=== PATIENT | female | born 1965 | race Caucasian/White ===

== ENCOUNTER 2018-01-22 10:36 | Inpatient (IN) | payer MEDICAID ==
[~2018-01-22] VITALS: Ht 152.4 cm; Wt 69.2 kg
[2018-01-22 10:52] VITALS: Ht 152.4 cm; Wt 69.2 kg
[2018-01-22 11:28] LABS: PLATELET COUNT 296 x10^3mcL (130-400)
[2018-01-22 11:29] LABS: BASOPHIL % 0 % (0-2); RED CELL DISTRIBUTION WIDTH 17.4 % (11.5-14.5)
[2018-01-22 11:35] LABS: microscopic required? NO
[2018-01-22 11:39] LABS: CALCIUM 8.4 mg/dL (8.5-10.1); CHLORIDE SERUM 101 mmol/L (98-107); CREATININE SERUM 0.7 mg/dL (0.6-1.0); GFR1 > 60 mL/min; GLUCOSE SERUM 125 mg/dL (74-106); POTASSIUM SERUM 3.7 mmol/L (3.5-5.1); SODIUM SERUM 135 mmol/L (136-145)
[2018-01-22 11:44] LABS: ALKALINE PHOSPHATASE 103 U/L (46-116); ALT/SGPT 17 U/L (14-59); AST/SGOT 17 U/L (15-37); BILIRUBIN TOTAL 0.85 mg/dL (0.20-1.00)
[2018-01-22 11:45] LABS: TOTAL PROTEIN, SERUM 8.4 g/dL (6.4-8.2)
[2018-01-22 11:59] LABS: urine erythrocyte NEGATIVE (NEGATIVE)
[2018-01-22 13:41] LABS: CHOLESTEROL/HDL RATIO 3.6; MAGNESIUM 2.1 mg/dL (1.8-2.4); PHOSPHOROUS 3.1 mg/dL (2.5-4.9)
[2018-01-22 13:48] LABS: FREE T4 0.97 ng/dL (0.76-1.46); FREE THYROXINE INDEX 2.6 ug/dL (1.4-4.5); T4(THYROXINE) 9.2 ug/dL (4.7-13.3)
[2018-01-22 13:49] LABS: T3 TOTAL 1.03 ng/mL
[2018-01-22 14:04] VITALS: BP 124/51
[2018-01-22 16:50] LABS: IRON 11 ug/dL (50-170); TOTAL IRON BINDING CAPACITY 534 ug/dL (250-450)
[2018-01-22 20:48] VITALS: BP 132/62
[2018-01-23 05:50] VITALS: BP 100/70
[2018-01-23 06:23] LABS: CALCIUM 8.4 mg/dL (8.5-10.1); CARBON DIOXIDE 23.8 mmol/L (21-32); CHLORIDE SERUM 105 mmol/L (98-107); CREATININE SERUM 0.6 mg/dL (0.6-1.0); GFR1 > 60 mL/min; GLUCOSE SERUM 134 mg/dL (74-106); POTASSIUM SERUM 3.8 mmol/L (3.5-5.1); SODIUM SERUM 137 mmol/L (136-145)
[2018-01-23 07:18] LABS: PLATELET COUNT 291 x10^3mcL (130-400)
[2018-01-23 07:36] LABS: BASOPHIL % 0 % (0-2); RED CELL DISTRIBUTION WIDTH 17.2 % (11.5-14.5)
[2018-01-23 08:23] VITALS: BP 115/54
[2018-01-23 14:30] LABS: rbc morphology (normal/abnorm) ABNORMAL (NORMAL)
[2018-01-23 14:31] LABS: tear drop cell (dacryocyte) 1+
[2018-01-23 17:31] VITALS: BP 136/65
[2018-01-23 17:49] LABS: BASOPHIL % 0.1 % (0-2); PLATELET COUNT 310 x10^3mcL (130-400); RED CELL DISTRIBUTION WIDTH 21.9 % (11.5-14.5)
[2018-01-23 18:28] LABS: ovalocyte/elliptocyte 1+; rbc morphology (normal/abnorm) ABNORMAL (NORMAL); tear drop cell (dacryocyte) 1+
[2018-01-23 21:21] VITALS: BP 131/61
[2018-01-24 04:47] VITALS: BP 137/68
[2018-01-24 06:25] LABS: PLATELET COUNT 270 x10^3mcL (130-400)
[2018-01-24 06:31] LABS: CARBON DIOXIDE 23.1 mmol/L (21-32); CHLORIDE SERUM 104 mmol/L (98-107); CREATININE SERUM 0.6 mg/dL (0.6-1.0); GFR1 > 60 mL/min; GLUCOSE SERUM 125 mg/dL (74-106); POTASSIUM SERUM 3.3 mmol/L (3.5-5.1); SODIUM SERUM 137 mmol/L (136-145)
[2018-01-24 06:49] LABS: BASOPHIL % 0 % (0-2); RED CELL DISTRIBUTION WIDTH 21.7 % (11.5-14.5)
[2018-01-24 06:50] LABS: rbc morphology (normal/abnorm) ABNORMAL (NORMAL)
[2018-01-24 09:14] VITALS: BP 143/66
[2018-01-24 14:15] LABS: PLATELET COUNT 294 x10^3mcL (130-400)
[2018-01-24 14:22] LABS: BASOPHIL % 0 % (0-2); RED CELL DISTRIBUTION WIDTH 21.9 % (11.5-14.5)
[2018-01-24 15:12] LABS: ovalocyte/elliptocyte 1+; tear drop cell (dacryocyte) 1+
[2018-01-24 15:13] LABS: rbc morphology (normal/abnorm) ABNORMAL (NORMAL)
[2018-01-24 18:01] VITALS: BP 146/68
[2018-01-24 20:05] VITALS: BP 142/67
[2018-01-25 05:48] VITALS: BP 132/60
[2018-01-25 06:35] LABS: CALCIUM 8.2 mg/dL (8.5-10.1); CARBON DIOXIDE 22.2 mmol/L (21-32); CHLORIDE SERUM 108 mmol/L (98-107); CREATININE SERUM 0.6 mg/dL (0.6-1.0); GFR1 > 60 mL/min; GLUCOSE SERUM 111 mg/dL (74-106); POTASSIUM SERUM 3.3 mmol/L (3.5-5.1); SODIUM SERUM 144 mmol/L (136-145)
[2018-01-25 07:43] LABS: PLATELET COUNT 299 x10^3mcL (130-400)
[2018-01-25 07:53] LABS: BASOPHIL % 0 % (0-2); RED CELL DISTRIBUTION WIDTH 21.7 % (11.5-14.5)
[2018-01-25 09:45] VITALS: BP 135/65
[2018-01-25 16:38] VITALS: BP 124/60
[2018-01-25 20:47] VITALS: BP 146/70
[2018-01-26 05:12] VITALS: BP 114/62
[2018-01-26 05:47] LABS: BASOPHIL % 0.6 % (0-2); PLATELET COUNT 337 x10^3mcL (130-400)
[2018-01-26 05:50] LABS: RED CELL DISTRIBUTION WIDTH 20.3 % (11.5-14.5)
[2018-01-26 05:55] LABS: CALCIUM 7.9 mg/dL (8.5-10.1); CARBON DIOXIDE 25.8 mmol/L (21-32); CHLORIDE SERUM 104 mmol/L (98-107); CREATININE SERUM 0.5 mg/dL (0.6-1.0); GFR1 > 60 mL/min; GLUCOSE SERUM 111 mg/dL (74-106); MAGNESIUM 1.8 mg/dL (1.8-2.4); PHOSPHOROUS 2.9 mg/dL (2.5-4.9); POTASSIUM SERUM 3.6 mmol/L (3.5-5.1); SODIUM SERUM 137 mmol/L (136-145)
[2018-01-26 07:52] VITALS: BP 139/61
[2018-01-26 12:39] VITALS: BP 136/63
[2018-01-26 13:12] LABS: ovalocyte/elliptocyte 1+; rbc morphology (normal/abnorm) ABNORMAL (NORMAL); tear drop cell (dacryocyte) 1+
[2018-01-26 16:24] VITALS: BP 133/67
[2018-01-26 20:45] VITALS: BP 138/62
[2018-01-27 05:24] VITALS: BP 138/66
[2018-01-27 06:08] LABS: BASOPHIL % 0.3 % (0-2); PLATELET COUNT 359 x10^3mcL (130-400)
[2018-01-27 06:33] LABS: RED CELL DISTRIBUTION WIDTH 21.2 % (11.5-14.5)
[2018-01-27 06:39] LABS: CALCIUM 8.2 mg/dL (8.5-10.1); CHLORIDE SERUM 102 mmol/L (98-107); CREATININE SERUM 0.6 mg/dL (0.6-1.0); GFR1 > 60 mL/min; GLUCOSE SERUM 106 mg/dL (74-106); POTASSIUM SERUM 3.5 mmol/L (3.5-5.1); SODIUM SERUM 138 mmol/L (136-145)
[2018-01-27 07:45] VITALS: BP 127/59
[2018-01-27 12:59] VITALS: BP 115/67
[2018-01-27 16:34] VITALS: BP 104/41
[2018-01-27 20:53] VITALS: BP 114/48
[2018-01-28 06:02] VITALS: BP 127/50
[2018-01-28 06:06] LABS: CALCIUM 8.3 mg/dL (8.5-10.1); CARBON DIOXIDE 28.6 mmol/L (21-32); CHLORIDE SERUM 101 mmol/L (98-107); CREATININE SERUM 0.5 mg/dL (0.6-1.0); GFR1 > 60 mL/min; GLUCOSE SERUM 119 mg/dL (74-106); POTASSIUM SERUM 3.5 mmol/L (3.5-5.1); SODIUM SERUM 135 mmol/L (136-145)
[2018-01-28 06:45] LABS: BASOPHIL % 0.4 % (0-2); PLATELET COUNT 370 x10^3mcL (130-400)
[2018-01-28 06:52] LABS: RED CELL DISTRIBUTION WIDTH 21.1 % (11.5-14.5); rbc morphology (normal/abnorm) ABNORMAL (NORMAL)
[2018-01-28 09:12] VITALS: BP 121/59
[2018-01-28] MEDS ORDERED: CLARITIN10 MG PO (17:10)
[2018-01-28] MEDS ORDERED: METFORMIN HCL500 MG PO (17:10)
[2018-01-28] MEDS ORDERED: GOOD SENSE ASPI81 M3 PO (17:11)
[2018-01-28] MEDS ORDERED: METOPROLOL TART25 M1 PO (17:11)
[2018-01-28] MEDS ORDERED: PRILOSEC OTC20 M1 PO (17:11)
[2018-01-28] MEDS ORDERED: NOR10 PO (17:12)
[2018-01-28] MEDS ORDERED: ALENDRONATE SOD70 M2 PO (17:13)
[2018-01-28 17:14] VITALS: BP 122/69
[2018-01-28 20:00] VITALS: BP 114/60
[2018-01-29 05:27] VITALS: BP 110/52
[2018-01-29 06:58] LABS: CALCIUM 8.1 mg/dL (8.5-10.1); CARBON DIOXIDE 25.8 mmol/L (21-32); CHLORIDE SERUM 102 mmol/L (98-107); CREATININE SERUM 0.6 mg/dL (0.6-1.0); GFR1 > 60 mL/min; GLUCOSE SERUM 127 mg/dL (74-106); POTASSIUM SERUM 3.7 mmol/L (3.5-5.1); SODIUM SERUM 138 mmol/L (136-145)
[2018-01-29 07:23] LABS: BASOPHIL % 0.1 % (0-2); PLATELET COUNT 356 x10^3mcL (130-400); RED CELL DISTRIBUTION WIDTH 24.7 % (11.5-14.5)
[2018-01-29 08:45] VITALS: BP 104/52
[2018-01-29 16:36] VITALS: BP 115/68
[2018-01-29 20:26] VITALS: BP 147/68
[2018-01-30 05:57] VITALS: BP 99/52
[2018-01-30 06:25] LABS: CALCIUM 8.3 mg/dL (8.5-10.1); CARBON DIOXIDE 25.4 mmol/L (21-32); CHLORIDE SERUM 103 mmol/L (98-107); CREATININE SERUM 0.6 mg/dL (0.6-1.0); GFR1 > 60 mL/min; GLUCOSE SERUM 123 mg/dL (74-106); POTASSIUM SERUM 4.1 mmol/L (3.5-5.1); SODIUM SERUM 137 mmol/L (136-145)
[2018-01-30 06:51] LABS: BASOPHIL % 0.5 % (0-2)
[2018-01-30 07:09] LABS: PLATELET COUNT 422 x10^3mcL (130-400); RED CELL DISTRIBUTION WIDTH 25.7 % (11.5-14.5)
[2018-01-30 07:45] VITALS: BP 114/52
[2018-01-30 08:59] LABS: rbc morphology (normal/abnorm) ABNORMAL (NORMAL)
[2018-01-30 11:58] VITALS: BP 110/56
[2018-01-30] MEDS ORDERED: NORCO1 TA2 PO (12:03)
[2018-01-30] MEDS ORDERED: FER300 PO (12:08)
== END 2018-01-30 14:27 | disposition home or self-care (01) | DRG 240 ==
LOC: ED 10:36 → MU 12:56
PROVIDERS: Emergency Medicine; Family Medicine; Internal Medicine; Internal Medicine Gastroenterology
PROC: 30233N1 Transfusion of Nonautologous Red Blood Cells into Peripheral Vein, Percutaneous Approach (ICD-10-PCS; 2018-01-23)
PROC: 0DB68ZX Excision of Stomach, Via Natural or Artificial Opening Endoscopic, Diagnostic (ICD-10-PCS; principal; 2018-01-25 12:30)
PROC: 0DBN8ZX Excision of Sigmoid Colon, Via Natural or Artificial Opening Endoscopic, Diagnostic (ICD-10-PCS; 2018-01-25 12:30)
DX: C18.7 Malignant neoplasm of sigmoid colon (principal); K65.9 Peritonitis, unspecified; E83.51 Hypocalcemia; E87.1 Hypo-osmolality and hyponatremia; K92.2 Gastrointestinal hemorrhage, unspecified; E87.6 Hypokalemia; D50.9 Iron deficiency anemia, unspecified; E78.5 Hyperlipidemia, unspecified; K52.9 Noninfective gastroenteritis and colitis, unspecified; R73.03 Prediabetes; Z68.27 Body mass index [BMI] 27.0-27.9, adult; Z85.42 Personal history of malignant neoplasm of other parts of uterus
CPT/HCPCS: 43235; 45378; 83880; 84439; 87046; 87046-59; 88344; 88361; C9113; J1200; J1610; J1940; J1956; J2250; J2310; J2405; J2543; J2916; J3010; J3490; J7030; P9016; Q0163

== ENCOUNTER 2018-02-10 15:25 | Inpatient (IN) | payer MEDICAID ==
[~2018-02-10] VITALS: Ht 154.9 cm; Wt 73.1 kg
[~2018-02-10 15:25] MED LIST: ALENDRONATE SOD70 M2 PO; CLARITIN10 MG PO; FER300 PO; GOOD SENSE ASPI81 M3 PO; METFORMIN HCL500 MG PO; METOPROLOL TART25 M1 PO; NOR10 PO; NORCO1 TA2 PO; PRILOSEC OTC20 M1 PO
[2018-02-10 15:36] VITALS: Ht 154.9 cm; Wt 73.1 kg
[2018-02-10 16:46] LABS: UA SPECIFIC GRAVITY <=1.005 (1.005-1.035); microscopic required? YES; urine erythrocyte 1+ (NEGATIVE)
[2018-02-10 17:06] LABS: CALCIUM 8.1 mg/dL (8.5-10.1); CARBON DIOXIDE 22.6 mmol/L (21-32); CHLORIDE SERUM 95 mmol/L (98-107); CREATININE SERUM 0.8 mg/dL (0.6-1.0); GFR1 > 60 mL/min; GLUCOSE SERUM 154 mg/dL (74-106); POTASSIUM SERUM 3.3 mmol/L (3.5-5.1); SODIUM SERUM 128 mmol/L (136-145); T3 TOTAL 0.69 ng/mL
[2018-02-10 17:18] LABS: ALBUMIN 3.5 g/dL (3.4-5.0); ALKALINE PHOSPHATASE 111 U/L (46-116); ALT/SGPT 30 U/L (14-59); AST/SGOT 21 U/L (15-37); BILIRUBIN TOTAL 1.1 mg/dL (0.20-1.00)
[2018-02-10 17:21] LABS: TOTAL PROTEIN, SERUM 8.3 g/dL (6.4-8.2)
[2018-02-10 17:31] LABS: FREE T4 1.08 ng/dL (0.76-1.46); FREE THYROXINE INDEX 2.7 ug/dL (1.4-4.5); T4(THYROXINE) 8.4 ug/dL (4.7-13.3)
[2018-02-10 17:34] LABS: C REACTIVE PROTEIN 20.5 mg/dL (<=0.9); CK-MB < 0.5 ng/mL (0-3.6); CREATINE KINASE 25 U/L (26-192)
[2018-02-10 18:02] LABS: PLATELET COUNT 491 x10^3mcL (130-400); RED CELL DISTRIBUTION WIDTH 28.9 % (11.5-14.5)
[2018-02-10 18:10] LABS: BAND NEUTROPHIL 2 % (0-10); BASOPHIL 0 % (0-2); MONOCYTE 8 % (0-7); SEGMENTED NEUTROPHILS 85 % (37-75); rbc morphology (normal/abnorm) ABNORMAL (NORMAL)
[2018-02-10 18:11] LABS: PLATELET MORPHOLOGY PLATELETS INCREASED
[2018-02-10 18:14] LABS: ERYTHROCYTE SED RATE 40 mm/hr (0-30)
[2018-02-10] MEDS ORDERED: TYL500 PO (19:07)
[2018-02-10 19:54] VITALS: BP 106/47
[2018-02-10 20:08] LABS: CHOLESTEROL/HDL RATIO 3.9; MAGNESIUM 1.8 mg/dL (1.8-2.4); PHOSPHOROUS 3.2 mg/dL (2.5-4.9)
[2018-02-10 21:07] VITALS: BP 119/49
[2018-02-11 01:08] LABS: AMPHETAMINE QUAL UR NONE DETECTED (See below)
[2018-02-11 05:41] VITALS: BP 105/37
[2018-02-11 06:56] LABS: PLATELET COUNT 338 x10^3mcL (130-400)
[2018-02-11 07:05] LABS: CARBON DIOXIDE 22.1 mmol/L (21-32); CHLORIDE SERUM 104 mmol/L (98-107); CREATININE SERUM 0.8 mg/dL (0.6-1.0); GFR1 > 60 mL/min; GLUCOSE SERUM 117 mg/dL (74-106); POTASSIUM SERUM 3.9 mmol/L (3.5-5.1); SODIUM SERUM 136 mmol/L (136-145)
[2018-02-11 09:14] VITALS: BP 106/47
[2018-02-11 12:17] LABS: BAND NEUTROPHIL 16 % (0-10); BASOPHIL 0 % (0-2); MONOCYTE 1 % (0-7); SEGMENTED NEUTROPHILS 78 % (37-75)
[2018-02-11 12:18] LABS: PLATELET MORPHOLOGY PLATELETS NORMAL; rbc morphology (normal/abnorm) ABNORMAL (NORMAL)
[2018-02-11 12:53] VITALS: BP 110/56
[2018-02-11 12:55] LABS: BASOPHIL % 0.2 % (0-2); PLATELET COUNT 369 x10^3mcL (130-400)
[2018-02-11 12:59] LABS: RED CELL DISTRIBUTION WIDTH 26.7 % (11.5-14.5)
[2018-02-11 14:08] LABS: rbc morphology (normal/abnorm) ABNORMAL (NORMAL)
[2018-02-11 17:06] VITALS: BP 132/48
[2018-02-11 20:39] VITALS: BP 105/49
[2018-02-12 05:18] VITALS: BP 110/52
[2018-02-12 06:08] LABS: CARBON DIOXIDE 25.3 mmol/L (21-32); CHLORIDE SERUM 107 mmol/L (98-107); CREATININE SERUM 0.6 mg/dL (0.6-1.0); GFR1 > 60 mL/min; GLUCOSE SERUM 108 mg/dL (74-106); POTASSIUM SERUM 3.4 mmol/L (3.5-5.1); SODIUM SERUM 138 mmol/L (136-145)
[2018-02-12 06:16] LABS: BASOPHIL % 0.2 % (0-2); PLATELET COUNT 347 x10^3mcL (130-400)
[2018-02-12 06:37] LABS: RED CELL DISTRIBUTION WIDTH 29.8 % (11.5-14.5)
[2018-02-12 09:55] VITALS: BP 133/60
[2018-02-12] MEDS ORDERED: LEVAQUIN750 MG PO (12:47)
[2018-02-12] MEDS ORDERED: FLA500 PO (12:48)
[2018-02-12 13:41] VITALS: BP 133/60
== END 2018-02-12 15:05 | disposition home or self-care (01) | DRG 240 ==
LOC: ED 15:25 → MU 18:59 → DU 18:59 → MU 19:29 → DU 20:00 → MU 02-11 16:12
PROVIDERS: Internal Medicine; Specialist
DX: C18.7 Malignant neoplasm of sigmoid colon (principal); E83.51 Hypocalcemia; R65.10 Systemic inflammatory response syndrome (SIRS) of non-infectious origin without acute organ dysfunction; E87.1 Hypo-osmolality and hyponatremia; E87.6 Hypokalemia; Z68.29 Body mass index [BMI] 29.0-29.9, adult; Z85.42 Personal history of malignant neoplasm of other parts of uterus
CPT/HCPCS: 36600; 82962; 83880; 84439; 87804; 90658; J2405; J2543; J3490; J7030; Q0092; Q9966; Q9967